=== PATIENT | female | born 1955 | race Two or more races ===

== ENCOUNTER 2020-11-19 16:44 | Emergency (ER) | payer MEDICAID, OTHER ==
[~2020-11-19] VITALS: Ht 152.4 cm; Wt 67.1 kg
[2020-11-19 18:51] VITALS: BP 159/81
[2020-11-19] MEDS ORDERED: KETOROLAC TROMETH 60MG/2ML VIAL IM ONE (19:00)
== END 2020-11-19 20:46 | disposition home or self-care (01) ==
LOC: ER 16:45
DX: S13.4XXA Sprain of ligaments of cervical spine, initial encounter (principal); S39.012A Strain of muscle, fascia and tendon of lower back, initial encounter; G89.11 Acute pain due to trauma; R51.9 Headache, unspecified; E03.9 Hypothyroidism, unspecified; V03.99XA Pedestrian with other conveyance injured in collision with car, pick-up truck or van, unspecified whether traffic or nontraffic accident, initial encounter; Y93.89 Activity, other specified; Y92.89 Other specified places as the place of occurrence of the external cause; Y99.8 Other external cause status
CPT/HCPCS: 70450; 72131; 96372; 99285; J1885